=== PATIENT | male | born 1990 | race Caucasian/White ===

== ENCOUNTER 2018-12-20 20:36 | Emergency (ER) | payer OTHER ==
[~2018-12-20] VITALS: Ht 170.2 cm; Wt 117.0 kg
[2018-12-20 20:40] VITALS: BP_SYST 139
[2018-12-21] MEDS ORDERED: DIPHENHYDRAMINE INJ 50 MG/ML VIAL IM ONE (01:15)
[2018-12-21] MEDS ORDERED: KETOROLAC TROMETHAMINE 60 MG/2 ML VIAL IM ONE (01:15)
[2018-12-21] MEDS ORDERED: MORPHINE SULFATE 10 MG/ML VIAL IM ONE (01:15)
[2018-12-21 03:00] VITALS: BP_SYST 133
== END 2018-12-21 03:00 | disposition home or self-care (01) ==
LOC: SED 20:36
DX: S39.012A Strain of muscle, fascia and tendon of lower back, initial encounter (principal); M54.30 Sciatica, unspecified side; X50.0XXA Overexertion from strenuous movement or load, initial encounter; X58.XXXA Exposure to other specified factors, initial encounter; Y93.89 Activity, other specified; Y92.89 Other specified places as the place of occurrence of the external cause; Y99.8 Other external cause status
CPT/HCPCS: 96372; 99283; J1200; J1885; J2270